=== PATIENT | female | born 1985 | race Caucasian/White ===

== ENCOUNTER 2019-01-13 16:35 | Emergency (ER) | payer MEDICAID ==
[~2019-01-13] VITALS: Ht 160 cm; Wt 59.0 kg
[~2019-01-13 16:35] MED LIST: ACET-2154 PO; PREN1TAB81 PO; [UNRECOGNIZED DRUG - REMARK]
[2019-01-13] MEDS ORDERED: ONDANSETRON 4 MG/2 ML VIAL ONE (17:10)
[2019-01-13] MEDS ORDERED: IV NORMAL SALINE 1000 ML BAG IV ONE (17:15)
[2019-01-13] MEDS ORDERED: ONDANSETRON 4 MG/2 ML VIAL IV ONE (17:15)
--- NOTE | 2019-01-13 17:17 | NUR ---
PT IS IN ROOM #2A. DR ABRAMS EVALUATED THE PT.
[2019-01-13 17:37] LABS: BASOPHILS # (AUTO) 0.1 K/uL (0.0-8.0); BASOPHILS % (AUTO) 0.7 % (0.0-2.0); EOSINOPHILS % (AUTO) 0.4 % (0.0-7.0); HEMATOCRIT 39.9 % (31.2-41.9); HEMOGLOBIN 13.6 g/dL (10.9-14.3); LYMPHOCYTES % (AUTO) 22.4 % (20.5-51.5); MEAN CORPUSCULAR HEMOGLOBIN 28.1 uug (24.7-32.8); MEAN CORPUSCULAR HGB CONC 34 g/dL (32.3-35.6); MEAN CORPUSCULAR VOLUME 82.1 fL (75.5-95.3); MONOCYTES # (AUTO) 0.5 K/uL (2.0-10.0); MONOCYTES % (AUTO) 5.5 % (0.0-11.0); NEUTROPHILS # (AUTO) 6.5 K/uL (1.8-8.9); PLATELET COUNT (AUTO) 214 K/uL (179-408); RED BLOOD CELL COUNT(AUTO) 4.86 MIL/uL (3.63-4.92); WHITE BLOOD COUNT (AUTO) 9.1 K/uL (3.8-11.8)
[2019-01-13 17:41] LABS: CARBON DIOXIDE 24 mmol/L (21-32); CHLORIDE 101 mmol/L (98-107); CREATININE 0.5 mg/dL (0.6-1.3); GLUCOSE 85 mg/dL (74-106); POTASSIUM 3.8 mmol/L (3.5-5.1); UREA NITROGEN, BLOOD 10 mg/dL (7-18)
[2019-01-13 17:46] LABS: ALANINE AMINOTRANSFERASE 17 U/L (14-59); ALKALINE PHOSPHATASE 47 U/L (50-136); ASPARTATE AMINOTRANSFERASE 12 U/L (15-37); BILIRUBIN,DIRECT 0.1 mg/dL (0.0-0.2); BILIRUBIN,TOTAL 0.4 mg/dL (0.2-1.0); LIPASE 83 U/L (73-393); TOTAL PROTEIN, SERUM 7.5 g/dL (6.4-8.2)
[2019-01-13 18:52] VITALS: BP 123/62
--- NOTE | 2019-01-13 18:52 | NUR ---
PT WAS D/C'd TO HOME. D/C INSTRUCTIONS GIVEN TO THE PT.
== END 2019-01-13 18:53 | disposition home or self-care (01) ==
LOC: ER 16:38
DX: R10.9 Unspecified abdominal pain (principal); Z33.1 Pregnant state, incidental; Z79.899 Other long term (current) drug therapy; Z3A.01 Less than 8 weeks gestation of pregnancy
CPT/HCPCS: 36415; 76856; 80048; 80076; 83690; 84702; 85025; 96361; 96374; 99284; J2405; A4663; J7030

== ENCOUNTER 2021-09-11 00:31 | Emergency (ER) | payer MEDICAID ==
[~2021-09-11] VITALS: Ht 165.1 cm; Wt 66.7 kg
--- NOTE | 2021-09-11 00:39 | NUR ---
Dr Groves into [facility] patient.
[2021-09-11] MEDS ORDERED: IBUPROFEN 800 MG TABLET PO ONE (01:00)
[2021-09-11] MEDS ORDERED: IBUPROFEN 800 MG TABLET ONE (01:02)
--- NOTE | 2021-09-11 01:24 | NUR ---
Patient out of unit for ct scan.
--- NOTE | 2021-09-11 01:41 | NUR ---
Patient back from ct scan with no distress noted.
[2021-09-11] MEDS ORDERED: OXYC5TAB3 PO (02:24)
[2021-09-11 02:32] VITALS: BP 115/77
--- NOTE | 2021-09-11 02:32 | NUR ---
Patient discharged to home in stable condition. Written and verbal after care instructions given. Patient verbalizes understanding of instructions. Stressed follow up or return to ER for worsening s/s.
== END 2021-09-11 02:32 | disposition home or self-care (01) ==
LOC: ER 00:37
DX: S00.83XA Contusion of other part of head, initial encounter (principal); V49.59XA Passenger injured in collision with other motor vehicles in traffic accident, initial encounter; Y92.411 Interstate highway as the place of occurrence of the external cause; S09.90XA Unspecified injury of head, initial encounter; E89.0 Postprocedural hypothyroidism; S20.212A Contusion of left front wall of thorax, initial encounter; S30.1XXA Contusion of abdominal wall, initial encounter; S50.01XA Contusion of right elbow, initial encounter
CPT/HCPCS: 70450; 70486; 71046; 72125; 73080; 93005; A4663

== ENCOUNTER 2022-09-26 04:13 | Emergency (ER) | payer MEDICAID ==
[~2022-09-26] VITALS: Ht 162.6 cm; Wt 61.2 kg
[~2022-09-26 04:13] MED LIST changes: +OXYC5TAB3 PO
--- NOTE | 2022-09-26 04:42 | NUR ---
Dr. Chavez at bedside assessing patient.
[2022-09-26] MEDS ORDERED: IPRATROPIUM BROMIDE 0.5 MG/2.5 ML NEBU NEB ONE (06:00)
[2022-09-26] MEDS ORDERED: ALBUTEROL SULFATE 2.5 MG/3 ML NEBU NEB ONE (06:00)
[2022-09-26] MEDS ORDERED: DEXAMETHASONE SOD PHOSPHATE 10 MG INJ ONE (06:01)
[2022-09-26] MEDS: DEXAMETHASONE SOD PHOSPHATE 4 MG INJ IM ONE ×2 (06:02→06:42)
[2022-09-26] MEDS ORDERED: D-ME473S63 PO (06:07)
[2022-09-26] MEDS ORDERED: IBUP-1955 PO (06:07)
[2022-09-26 06:43] VITALS: BP 112/80
[2022-09-26 07:04] LABS: *URINE HCG, QUAL NEG (NEGATIVE)
== END 2022-09-26 06:44 | disposition home or self-care (01) ==
LOC: ER 04:15
DX: J06.9 Acute upper respiratory infection, unspecified (principal); E89.0 Postprocedural hypothyroidism; Z88.6 Allergy status to analgesic agent; Z20.822 Contact with and (suspected) exposure to COVID-19
CPT/HCPCS: 99283; 87426; 84703; 87400; 96372; J1100; A4663

== ENCOUNTER 2023-08-04 22:30 | Emergency (ER) | payer MEDICAID ==
[~2023-08-04] VITALS: Ht 165.1 cm; Wt 67.1 kg
[~2023-08-04 22:30] MED LIST changes: +D-ME473S63 PO; +IBUP-1955 PO
[2023-08-04 23:03] VITALS: O2SAT 100
== END 2023-08-05 01:10 | disposition left against medical advice (07) ==
LOC: ER 22:33
DX: Z53.21 Procedure and treatment not carried out due to patient leaving prior to being seen by health care provider (principal)
CPT/HCPCS: A4663